=== PATIENT | female | born 1990 ===

== ENCOUNTER 2022-08-29 11:06 | Outpatient (REF) | payer OTHER, SELFPAY ==
--- NOTE | 2022-08-29 10:40 | PAPFT_PTH ---
PATIENT: Vidhya Ceja LOC: [facility] U#:[id number] AGE/SX: 32/F ROOM: RE08/29/[address]: Brionna Guevara DO : 1990 BED: DIS: 08/29/2022 SPEC #: [id number] RECD: 08/29/22 13:19 STATUS: JUAN REQ #: [id number] DARIELA: 08/29/22 10:[address]: Brionna Guevara DEPT: [facility] Cytology RECD BY: Jenni Leiva Tissues: 1 - CX/ENDOCX FOR PAP SMEARS Procedures: PAP THIN PREP/U[facility] Screening HPV DNA PROBE Comments: [id number] (CHLAMYDIA/GC)
[2022-08-30 14:13] LABS: Chlamydia Result Negative (Negative); GC Result Negative (Negative)
== END 2022-08-29 11:07 | disposition home or self-care (01) ==
LOC: LBN 11:06
PROVIDERS: Visit Provider Obstetrics & Gynecology
DX: Z11.3 Encounter for screening for infections with a predominantly sexual mode of transmission (principal); Z12.4 Encounter for screening for malignant neoplasm of cervix; Z11.51 Encounter for screening for human papillomavirus (HPV)
CPT/HCPCS: 87491; 87591; 88142; 87624

== ENCOUNTER 2022-10-11 01:56 | Outpatient (CLI) | payer OTHER, SELFPAY ==
[2022-10-11 15:51] LABS: Abs Immature Grans 0.01 10^3/uL (0.0-0.06); Absolute Basophil Count 0.01 10^3/uL (0.0-0.2); Absolute Eosinophil Count 0.09 10^3/uL (0.0-0.7); Absolute Lymphocyte Count 1.99 10^3/uL (1.2-3.4); Absolute Monocyte Count 0.34 10^3/uL (0.1-0.8); Absolute Neutrophil Count 2.76 10^3/uL (1.2-6.7); Basophils % 0.2; Eosinophils % 1.7; HCT 39.4 % (36.0-46.0); HGB 13.1 g/dL (11.2-15.7); Immature Grans % 0.2; Lymphocytes % 38.3; MCH 29.3 pg (27.0-33.0); MCHC 33.2 % (32.0-36.0); MCV 88 fL (80-95); MPV 9.8 fL (8.0-11.0); Monocytes % 6.5; Neutrophils % 53.1; Platelet Count 162 10^3/uL (130-400); RBC 4.47 10^6/uL (3.93-5.22); RDW 12.2 % (11.7-14.6); RDW-SD 39.5 fL
== END 2022-10-11 01:57 | disposition home or self-care (01) ==
LOC: LBO 01:56
PROVIDERS: Visit Provider Obstetrics & Gynecology
DX: Z01.812 Encounter for preprocedural laboratory examination (principal)
CPT/HCPCS: 36415; 86850; 86900; 86901; 85025

== ENCOUNTER 2022-10-13 06:05 | Day surgery (SDC) | payer OTHER, SELFPAY ==
[2022-10-13] VITALS (9 sets, daily range): BP systolic 124–162; BP diastolic 70–133; PULSE 63–88; RESP 14–18; TEMP 36.2–37.1; O2SAT 97–100; BMI 28.5
[2022-10-13] MEDS: Lactated Ringers 1,000 ML 125 ML IV (06:49)
--- NOTE | 2022-10-13 07:10 | W.ANESPRE ---
General Info Date of Service Date Performed: 10/13/22 Height: 5 ft 4 in Weight: 75.5 kg Body Mass Index (BMI): 28.5 Surgical Procedure: Operation Date: 10/13/22 07:40 Proposed Procedure Side Surgeon p Salpingectomy Laparoscopic Bilateral Brionna Guevara DO Meds Allergies and Home Medications Allergies Allergy/AdvReac Type Severity Reaction Status Date / Time ceflacor Allergy Unknown Unknown Uncoded 10/13/22 06:20 Home Medication Medication Instructions Recorded digestive enzymes 1 tab PO DAILY 08/29/22 fexofenadine 60 mg tablet (Ania 60 mg PO DAILY PRN 08/29/22 Allergy) ibuprofen 200 mg tablet (Advil) 200 mg PO Q6H PRN 08/29/22 norethindrone acetate 1 mg-ethinyl 1 tab PO DAILY 08/29/22 estradiol 20 mcg tablet (Katarzyna) Current Visit Medications: Current Medications Generic Name Dose Route Start Last Admin Trade Name Freq PRN Reason Stop Dose Admin Ringer's Solution 1,000 mls @ 125 mls/hr 10/13/22 06:00 10/13/22 06:49 IV 11/11/22 23:59 125 mls/hr INFUSION ALEX Administration IV Miscellaneous Supplies 1 each 10/13/22 06:00 Iv Access IV 11/11/22 23:59 DIRECTED ALEX Sodium Chloride 0 ml 10/13/22 06:00 Normal Saline Flush 10 Ml Syr IV 11/11/22 23:59 PRN PRN Sodium Chloride 0 ml 10/13/22 06:00 Normal Saline 10 Ml Vial IJ 11/11/22 23:59 DIRECTED PRN Sterile Water 0 ml 10/13/22 06:00 Water,Injection,Sterile 10 Ml Vial IJ 11/11/22 23:59 DIRECTED PRN PFSH Active Problems Active Problems: Problem Status Onset Code Well woman exam with routine gynecological exam Z01.419 Contraceptive management Z30.9 Dysmenorrhea N94.6 Medical History Medical History Anxiety Eating disorder Gallbladder & bile duct stone, nonacute cholecystitis & obstruction IBS (irritable bowel syndrome) Tobacco Smoking/Tobacco Use Status: Never Alcohol Alcohol Intake: current Alcohol intake frequency: holidays/special occasions only Substance Use Substance use: Daily Substance use type: marijuana Prental History History 0 Para Hx # Term Pregnancies Multiple births Hx # Pregnancies Ectopic pregnancies AB induced Hx Number of Living Children AB spontaneous Vital Signs and Lab Results Vital Signs Most Recent Vital Signs in EMR: Most Recent Vital Signs Temp Pulse Resp BP Pulse Ox 37.1 C 72 18 135/88 100 10/13/22 06:15 10/13/22 06:15 10/13/22 06:15 10/13/22 06:15 10/13/22 06:15 Point of Care Results Point of Care Results: POC- Test(urine) Negative 10/13/22 07:02 Lab Results Blood Type / Crossmatch: Patient ABO/Rh A Positive 10/11/22 Antibody Screen NEGATIVE 10/11/22 Complete Blood Count: White Blood Count 5.20 10^3/uL (4.4-10.8) 10/11/22 15:45 Red Blood Count 4.47 10^6/uL (3.93-5.22) 10/11/22 15:45 Hemoglobin 13.1 g/dL (11.2-15.7) 10/11/22 15:45 Hematocrit 39.4 % (36.0-46.0) 10/11/22 15:45 Platelet Count 162 10^3/uL (130-400) 10/11/22 15:45 Complete Metabolic Panel: No Data to Display Liver Function Panel: No Data to Display Coagulation Panel: No Data to Display Cardiac Panel: No Data to Display Arterial Blood Gas: No Data to Display Venous Blood Gas: No Data to Display Pancreas Panel: No Data to Display Thyroid Panel: No Data to Display Infectious Disease: No Data to Display Blood Cultures: No Data to Display Toxicology Panel: No Data to Display Panel: No Data to Display Anesthesia Assessment and Plan Anesthesia History Personal History: No History of Anesthesia Complications Family History: Family History Unknown Exercise Tolerance Exercise Tolerance: Metabolic Equivalents>4 Pertinent Negatives Pertinent Negatives: No Symptoms of GERD Cardiac & Pulmonary Exam Cardiac Exam: Normal S1/S2 Heart Sounds Pulmonary Exam: Clear Bilateral Breath Sounds Implantable Cardiac Device Does patient have a Pacemaker or an ICD?: No Airway Exam Known Difficult Airway: No Mallampati Class: 1 Mouth Opening: Normal (> 3cm) Thyromental Distance: Greater than 3 cm Neck Range of Motion: Full ROM Neck Circumference: Normal Teeth Condition: Normal Dentition ASA Classification ASA Score: ASA 2 Emergency Case?: No NPO Status NPO Status: NPO Clears >2 hours, Solids >8 hours Status Status: Negative HCG Anesthesia Plan Resuscitation Status: Full Code Anesthesia Technique: General Anesthesia Airway Planned: Endotracheal Tube Monitors Used: Standard Monitors
--- NOTE | 2022-10-13 08:22 | FALL_PTH ---
PATIENT: Vidhya Ceja LOC: [facility] U#:[id number] AGE/SX: 32/F ROOM: RE10/13/[address]: Brionna Guevara DO : 1990 BED: DIS: 10/13/2022 SPEC #: [id number] RECD: 10/13/22 12:41 STATUS: JUAN REQ #: [id number] DARIELA: 10/13/22 08:[address]: Brionna Guevara DEPT: Surgical Specimen RECD BY: Jenni Leiva ENTERED: 10/13/22 12:42 SP TYPE: Fall OTHR DR: Unknown,Unknown Tissues: 1 - FALLOPIAN TUBE (STERILIZATION) 2 - FALLOPIAN TUBE (STERILIZATION) Procedures: GROSS AND MICRO LEVEL 2 Comments: [id number]
[2022-10-13] MEDS: Bupivacaine 0.25% Pres-Free 30 ML VIAL (08:30)
--- NOTE | 2022-10-13 08:43 | W.PM.OP ---
Date of service: 10/13/22 Time of Service: 08:43 Operative Note Operative Note DATE OF PROCEDURE: 10/13/22 PRE-OP DIAGNOSIS: Undesired fertility POST-OP DIAGNOSIS: same PROCEDURE: Laparoscopic bilateral salpingectomy SURGEON: Brionna Guevara ASSISTING SURGEON: Thania Cabrera ANESTHESIA TYPE: Local By Surgeon and General LMA/ETT Refer to Anesthesia Record ESTIMATED BLOOD LOSS: 10 PATHOLOGY: other (1. Left fallopian tube 2. Right fallopian tube) COMPLICATIONS: None Patient was transported to: PACU Patient's condition: stable Indications: Undesired fertility Findings: Normal-appearing fallopian tubes, ovaries, uterus. Procedure Description: After full informed consent was obtained and negative status verified, patient was taken the operating suite with an IV running. She was placed in the dorsal supine position and endotracheal intubation performed for the administration of general anesthesia with ease. She was then placed in the modified dorsolithotomy position in yellowfin stirrups with pneumatic compression stockings for DVT prophylaxis. No antibiotic prophylaxis was indicated. She was then prepped and draped in the usual sterile fashion and exam under anesthesia revealed a uterus that was midline and mobile without evidence of adnexal masses. Rate catheter was used to empty her bladder for approximately 400 cc of clear yellow urine. At this point speculum was inserted in the vaginal vault and the cervix identified. A [employer] uterine manipulator was placed within and speculum was removed. Attention was then turned to the anterior abdominal wall where quarter percent Marcaine was used to infiltrate the umbilicus. A vertical umbilical incision was made and penetrating towel clips were used to lift the anterior abdominal wall. After 3 attempts of using the varies needle, without appropriate response with pressure for creation of pneumoperitoneum with CO2 gas, the fascia was then grasped with Darío clamps and elevated. A small incision was made in the fascia and with an Optiview 12 mm trocar under direct visualization the abdomen was entered. Pneumoperitoneum was created with CO2 gas to a maximum pressure of 15 mmHg. The entire abdomen and pelvis were inspected and noted to be atraumatic and free of disease. A second and third right and left lower quadrant trocar site were placed after infiltration with quarter percent Marcaine under direct visualization. At this point, the uterus was elevated and left fallopian tube identified followed out to the fimbriated end. This fallopian tube was elevated and cautery transected for removal through the 12 mm port. Similar procedure was carried out on the right fallopian tube. Meticulous attention was placed on the vasculature ensuring continued blood supply to the ovaries bilaterally. Pedicles were then reinspected and noted to be hemostatic. At this point the procedure was terminated. Pneumoperitoneum was released. Pedicles remained hemostatic. Under direct visualization all ports were removed. Patient was returned to the dorsal supine position and the fascial incision was closed using 0 Vicryl suture in a simple interrupted fashion. Skin edges were reapproximated with 4-0 undyed Monocryl and Steri-Strips and sterile dressings were placed. The [place] uterine manipulator was removed from the uterus. The patient was then returned to the dorsal supine position and awoke from anesthesia without difficulty. She was taken to the postanesthesia care unit in stable condition. Findings: Normal-appearing tubes, ovaries, uterus Pathology: 1. Left fallopian tube 2. Right fallopian tube Complications: None apparent Fluids: Crystalloid per anesthesia EBL: 10 mL
--- NOTE | 2022-10-13 09:06 | W.ANESPOSTOP ---
Postoperative Evaluation Date, Time and Location Date Performed: 10/13/22 Time Performed: 09:07 Patient Location: PACU Vital Signs Most Recent Imported Vital Signs: Most Recent Vital Signs Temp Pulse Resp BP Pulse Ox 36.6 C 75 17 134/73 99 10/13/22 09:02 10/13/22 09:02 10/13/22 09:02 10/13/22 09:02 10/13/22 09:02 Assessment Mental Status: Arousable with meaningful communication Airway and Respiratory Function: Patent airway with normal (patient baseline) respiratory exam Cardiovascular Function: Hemodynamically Stable Hydration Status: Adequately Hydrated Nausea & Vomiting: No Nausea or Vomiting Pain: Pt. Denies Any Pain Peripheral Nerve Block: Patient did not receive a nerve block
== END 2022-10-13 10:55 | disposition home or self-care (01) ==
PROVIDERS: Visit Provider Obstetrics & Gynecology
PROC: (CPT 58661; principal; 2022-10-13 07:30)
DX: Z30.2 Encounter for sterilization (principal)
CPT/HCPCS: 58661; 88302; J1100; J1885; J2001; J2250; J2405; J2704; J3010

== ENCOUNTER 2025-01-14 14:48 | Outpatient (REF) | payer OTHER, SELFPAY ==
[2025-01-15 12:35] LABS: Chlamydia Result Negative (Negative); GC Result Negative (Negative)
== END 2025-01-14 14:49 | disposition home or self-care (01) ==
LOC: LBN 14:48
PROVIDERS: Visit Provider Obstetrics & Gynecology
DX: Z30.430 Encounter for insertion of intrauterine contraceptive device (principal)
CPT/HCPCS: 87491; 87591